=== PATIENT | male | born 1990 | race Caucasian/White ===

== ENCOUNTER 2016-07-04 10:47 | Emergency (ER) | payer SELFPAY ==
[2016-07-04 12:22] LABS: AMPHETAMINES LEVEL URINE NEGATIVE (NEGATIVE); BENZODIAZEPINES URINE NEGATIVE (NEGATIVE); COCAINE METABOLITE URINE NEGATIVE (NEGATIVE); CONTROL LINE INT CTR LINE PRESENT; METHADONE URINE NEGATIVE (NEGATIVE); OPIATES URINE NEGATIVE (NEGATIVE); TRICYCLIC ANTIDEPRESS URINE NEGATIVE (NEGATIVE)
--- NOTE | 2016-07-04 13:24 | EDDOCDS ---
Physician Documentation [facility] Name: Ambrosio Galvez Age: 25 yrs Sex: Male : 1990 Arrival Date: 07/04/2016 Time: 10:47 Bed TR8 Private MD: Disposition: 07/04/16 12:32 Discharged to Home/Self Care. Impression: Contact with and (suspected) exposure to other hazardous, chiefly nonmedicinal, chemicals - UNKNOWN SUBSTANCE, CURRENTLY ASYMPTOMATIC. - Condition is Stable. - Discharge Instructions: Food Poisoning, [id number]. - Medication Reconciliation, Local Pharmacy Hours form. - Follow up: Emergency Department; When: As needed; Reason: Worsening of conditions. Follow [facility]: [facility]; When: Call to arrange an appointment; Reason: Recheck today's complaints, Continuance of care, To establish care. - Problem is new. - Symptoms are unchanged. - Notes: PLEASE FOLLOW UP WITH THE POLICE AND [employer] REGARDING YOUR OCCURANCE TODAY. PLEASE RETURN TO THE ER WITH ANY WORSENING SYMPTOMS. Historical: - Allergies: No known drug Allergies; - Home Meds: 1. none - PMHx: none; - PSHx: none; - Social history: Smoking status: Patient uses tobacco products, heavy tobacco smoker. No barriers to communication noted, The patient speaks fluent Latvian. - : The pt / caregiver states he / she is not on anticoagulants. Home medication list is obtained from the patient, [employer] import data. - Exposure Risk Screening:: Recent exposure to bio hazardous agents. Vital Signs: 07/04 10:49 BP 161 / 88; Pulse 86; Resp 16; Temp 97.0(O); Pulse Ox 100% on R/A; Weight 95.25 kg / lr2 209.99 lbs (R); Height 5 ft. 11 in. (180.34 cm) (R); Pain 0/10; 10:49 Body Mass Index 29.29 (95.25 kg, 180.34 cm) lr2 MDM: 11:38 Financial registration complete. mm15 11:45 [facility] Payment Agreement was scanned into [employer] and attached to record. mm15 11:58 Urine Toxicology Ordered. EDMS 12:13 ED course: PT STATES WAS AT [employer] TODAY HAVING LUNCH AT 1000, BIT INTO HIS [employer] dt4 AND NOTED A BAG FILLED WITH A WHITE POWDER. STATES HE TOOK PICTURES OF IT, DID MELLY WONG AND THE POLICE. POLICE REPORT WAS MADE, MELLY WONG KEPT THE BAG AND "THEY SENT IT TO THEIR CORPORATE OFFICE". PT STATES BAD TASTE IN MOUTH BUT CURRENTLY DENIES ALL OTHER SYMPTOMS. NO ABDOMINAL PAIN, NAUSEA, VOMITING. . Signatures: Dispatcher [employer] Kanwal Lang RN RN [facility] Evelio Palm mm15 Racquel Arana PA-C PA-C dt4 Camila Linda RN RN ms18 The chart was reviewed and I authenticate all verbal orders and agree with the evaluation and treatment provided.Attachments: 11:45 [facility] Payment Agreement mm15 MTDD
--- NOTE | 2016-07-04 13:24 | EDDOCDS ---
Nurse's Notes [facility] [place] Name: Ambrosio Galvez Age: 25 yrs Sex: Male : 1990 Arrival Date: 07/04/2016 Time: 10:47 Bed TR8 Private MD: Diagnosis: Contact with and (suspected) exposure to other hazardous, chiefly nonmedicinal, chemicals-UNKNOWN SUBSTANCE, CURRENTLY ASYMPTOMATIC Presentation: 07/04 10:51 Presenting complaint: Patient states: about half an hour ago he bit into a burrito at [facility] and it had a white substance in a bag - not sure if he broke the bag but he tasted something funny in his burrito. the police have the substance. Adult Sepsis Screening: The patient does not have new or worsening altered mentation. Patient's respiratory rate is less than 22. Systolic blood pressure is greater than 100. Patient has a qSOFA score of 0- Negative Sepsis Screen. Suicide/Homicide risk assessment- the patient denies having any suicidal and/or homicidal ideations and does not present with any other emotional, behavioral or mental health complaints. 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 Transition of care: patient was not received from another setting of care. 10:51 Method Of Arrival: Walkin/Carried/Asstd [facility] 10:51 Acuity: DAYAMI Level 4 [facility] Triage Assessment: 10:54 General: Appears comfortable, well developed, well nourished, well groomed, Behavior is kcs cooperative, pleasant. Pain: Denies pain. HIV screening NA for this visit Offered previously. Neurological: Level of Consciousness is awake, alert. Respiratory: Airway is patent Respiratory effort is even, unlabored, Respiratory pattern is regular, symmetrical. Derm: Skin is intact, is healthy with good turgor, Skin is dry, Skin is normal. Historical: - Allergies: No known drug Allergies; - Home Meds: 1. none - PMHx: none; - PSHx: none; - Social history: Smoking status: Patient uses tobacco products, heavy tobacco smoker. No barriers to communication noted, The patient speaks fluent Malay. - : The pt / caregiver states he / she is not on anticoagulants. Home medication list is obtained from the patient, [employer] import data. - Exposure Risk Screening:: Recent exposure to bio hazardous agents. Assessment: 13:21 General: Called pt twice to come back and be discharged. Pt was not present in the ms18 waiting room either time his name was called. Vital Signs: 10:49 BP 161 / 88; Pulse 86; Resp 16; Temp 97.0(O); Pulse Ox 100% on R/A; Weight 95.25 kg lr2 (R); Height 5 ft. 11 in. (180.34 cm) (R); Pain 0/10; 10:49 Body Mass Index 29.29 (95.25 kg, 180.34 cm) lr2 Vitals: 10:49 Log In Time: July 04, 2016 at 10:47. lr2 ED Course: 10:49 Patient visited by Kassandra Pardo. lr2 10:49 Patient moved to Waiting lr2 10:50 Patient moved to Pre RCE lr2 10:54 Triage Initiated kcs 11:14 Patient moved to Triage 1 srm 11:31 Racquel Arana PA-C is PHCP. dt4 11:31 Sylwia Mcnamara MD is Attending Physician. dt4 11:31 Patient visited by Racquel Arana PA-C. dt4 11:45 [facility] Payment Agreement was scanned into [employer] and attached to record. mm15 12:00 Patient visited by Camila Linda RN. ms18 12:00 Patient moved to TR2 ms18 12:02 Urine Toxicology Sent. srm 12:31 [facility] is Referral Physician. dt4 12:50 Patient moved to PR1 / 25 ms18 12:52 Patient moved to TR8 ms18 Order Results: Lab Order: Urine Toxicology; SPEC'M 07/04/16 12:00 Test: AMPHETAMINES LEVEL URINE; Value: NEGATIVE; Range: NEGATIVE; Status: F Test: BARBITURATES URINE; Value: NEGATIVE; Range: NEGATIVE; Status: F Test: BENZODIAZEPINES URINE; Value: NEGATIVE; Range: NEGATIVE; Status: F Test: CANNABINOIDS URINE; Value: POSITIVE; Range: NEGATIVE; Abnormal: Above high normal; Status: F Test: COCAINE METABOLITE URINE; Value: NEGATIVE; Range: NEGATIVE; Status: F Test: METHADONE URINE; Value: NEGATIVE; Range: NEGATIVE; Status: F Test: OPIATES URINE; Value: NEGATIVE; Range: NEGATIVE; Status: F Test: TRICYCLIC ANTIDEPRESS URINE; Value: NEGATIVE; Range: NEGATIVE; Status: F Test Note: ; FALSE POSITIVE RESULTS CAN BE CAUSED BY THE USE OF PANTOPRAZOLE (PROTONIX). Outcome: 12:32 Discharge ordered by Provider. dt4 13:23 Eloped from waiting room after seeing physician. ms18 13:23 Patient left the ED. ms18 Signatures: Kanwal Nicholas, RN RN [facility] Divya Devine RN RN srm McGrath, Marlynn mm15 Racquel Arana, PASvetlanaC PA-Pacheco dt4 Camila Linda RN RN ms18 Kassandra Pardo2 MTDD
--- NOTE | 2016-07-06 14:25 | EDDOCDS ---
Physician Documentation [facility] Name: Ambrosio Galvez Age: 25 yrs Sex: Male : 1990 Arrival Date: 07/04/2016 Time: 10:47 Bed TR8 Private MD: Disposition: 07/04/16 12:32 Discharged to Home/Self Care. Impression: Contact with and (suspected) exposure to other hazardous, chiefly nonmedicinal, chemicals - UNKNOWN SUBSTANCE, CURRENTLY ASYMPTOMATIC. - Condition is Stable. - Discharge Instructions: Food Poisoning, [id number]. - Medication Reconciliation, Local Pharmacy Hours form. - Follow up: Emergency Department; When: As needed; Reason: Worsening of conditions. Follow up: [facility]; When: Call to arrange an appointment; Reason: Recheck today's complaints, Continuance of care, To establish care. - Problem is new. - Symptoms are unchanged. - Notes: PLEASE FOLLOW UP WITH THE POLICE AND [employer] REGARDING YOUR OCCURANCE TODAY. PLEASE RETURN TO THE ER WITH ANY WORSENING SYMPTOMS. Historical: - Allergies: No known drug Allergies; - Home Meds: 1. none - PMHx: none; - PSHx: none; - Social history: Smoking status: Patient uses tobacco products, heavy tobacco smoker. No barriers to communication noted, The patient speaks fluent Italian. - : The pt / caregiver states he / she is not on anticoagulants. Home medication list is obtained from the patient, [employer] import data. - Exposure Risk Screening:: Recent exposure to bio hazardous agents. Vital Signs: 07/04 10:49 BP 161 / 88; Pulse 86; Resp 16; Temp 97.0(O); Pulse Ox 100% on R/A; Weight 95.25 kg / lr2 209.99 lbs (R); Height 5 ft. 11 in. (180.34 cm) (R); Pain 0/10; 10:49 Body Mass Index 29.29 (95.25 kg, 180.34 cm) lr2 MDM: 11:38 Financial registration complete. mm15 11:45 [facility] Payment Agreement was scanned into [employer] and attached to record. mm15 11:58 Urine Toxicology Ordered. EDMS 12:13 ED course: PT STATES WAS AT [employer] TODAY HAVING LUNCH AT 1000, BIT INTO HIS [employer] dt4 AND NOTED A BAG FILLED WITH A WHITE POWDER. STATES HE TOOK PICTURES OF IT, DID MELLY WONG AND THE POLICE. POLICE REPORT WAS MADE, [employer] KEPT THE BAG AND "THEY SENT IT TO THEIR CORPORATE OFFICE". PT STATES BAD TASTE IN MOUTH BUT CURRENTLY DENIES ALL OTHER SYMPTOMS. NO ABDOMINAL PAIN, NAUSEA, VOMITING. . 07/05 12:23 Refusal of Services was scanned into [employer] and attached to record. gb 12:23 T-Sheet-- Draft Copy was scanned into [employer] and attached to record. gb Signatures: Dispatcher [employer] EDKanwal Kerr, RN RN kcs Rosa Rodriguez, Reg Reg gb Evelio Palm mm15 Racquel Arana PA-C PA-C dt4 Camila Linda RN RN ms18 The chart was reviewed and I authenticate all verbal orders and agree with the evaluation and treatment provided.Attachments: 07/04 11:45 [facility] Payment Agreement mm15 12:23 T-Sheet-- Draft Copy gb Chart Complete MTDD
--- NOTE | 2016-07-06 14:25 | EDDOCDS ---
Physician Documentation [facility] Name: Ambrosio Galvez Age: 25 yrs Sex: Male : 1990 Arrival Date: 07/04/2016 Time: 10:47 Bed TR8 Private MD: Disposition: 07/04/16 12:32 Discharged to Home/Self Care. Impression: Contact with and (suspected) exposure to other hazardous, chiefly nonmedicinal, chemicals - UNKNOWN SUBSTANCE, CURRENTLY ASYMPTOMATIC. - Condition is Stable. - Discharge Instructions: Food Poisoning, [id number]. - Medication Reconciliation, Local Pharmacy Hours form. - Follow up: Emergency Department; When: As needed; Reason: Worsening of conditions. Follow up: [facility]; When: Call to arrange an appointment; Reason: Recheck today's complaints, Continuance of care, To establish care. - Problem is new. - Symptoms are unchanged. - Notes: PLEASE FOLLOW UP WITH THE POLICE AND [employer] REGARDING YOUR OCCURANCE TODAY. PLEASE RETURN TO THE ER WITH ANY WORSENING SYMPTOMS. Historical: - Allergies: No known drug Allergies; - Home Meds: 1. none - PMHx: none; - PSHx: none; - Social history: Smoking status: Patient uses tobacco products, heavy tobacco smoker. No barriers to communication noted, The patient speaks fluent Serbian. - : The pt / caregiver states he / she is not on anticoagulants. Home medication list is obtained from the patient, [employer] import data. - Exposure Risk Screening:: Recent exposure to bio hazardous agents. Vital Signs: 07/04 10:49 BP 161 / 88; Pulse 86; Resp 16; Temp 97.0(O); Pulse Ox 100% on R/A; Weight 95.25 kg / lr2 209.99 lbs (R); Height 5 ft. 11 in. (180.34 cm) (R); Pain 0/10; 10:49 Body Mass Index 29.29 (95.25 kg, 180.34 cm) lr2 MDM: 11:38 Financial registration complete. mm15 11:45 [facility] Payment Agreement was scanned into [employer] and attached to record. mm15 11:58 Urine Toxicology Ordered. EDMS 12:13 ED course: PT STATES WAS AT [employer] TODAY HAVING LUNCH AT 1000, BIT INTO HIS [employer] [facility] dt4 AND NOTED A BAG FILLED WITH A WHITE POWDER. STATES HE TOOK PICTURES OF IT, DID [employer] W[employer] AND THE POLICE. POLICE REPORT WAS MADE, [employer] W[employer] KEPT THE BAG AND "THEY SENT IT TO THEIR CORPORATE OFFICE". PT STATES BAD TASTE IN MOUTH BUT CURRENTLY DENIES ALL OTHER SYMPTOMS. NO ABDOMINAL PAIN, NAUSEA, VOMITING. . 07/05 12:23 Refusal of Services was scanned into [employer] and attached to record. gb 12:23 T-Sheet-- Draft Copy was scanned into [employer] and attached to record. gb Signatures: Dispatcher [employer] EDKanwal Kerr, RN RN kcs Rosa Rodriguez, Reg Reg gb Evelio Palm mm15 Racquel Arana PA-C PA-C dt4 Camila Linda RN RN ms18 The chart was reviewed and I authenticate all verbal orders and agree with the evaluation and treatment provided.Attachments: 07/04 11:45 [facility] Payment Agreement mm15 12:23 T-Sheet-- Draft Copy gb Chart Complete MTDD
--- NOTE | 2016-07-06 14:25 | EDDOCDS ---
Nurse's Notes [facility] Name: Ambrosio Galvez Age: 25 yrs Sex: Male : 1990 Arrival Date: 07/04/2016 Time: 10:47 Bed TR8 Private MD: Diagnosis: Contact with and (suspected) exposure to other hazardous, chiefly nonmedicinal, chemicals-UNKNOWN SUBSTANCE, CURRENTLY ASYMPTOMATIC Presentation: 07/04 10:51 Presenting complaint: Patient states: about half an hour ago he bit into a burrito at [facility] and it had a white substance in a bag - not sure if he broke the bag but he tasted something funny in his burrito. the police have the substance. Adult Sepsis Screening: The patient does not have new or worsening altered mentation. Patient's respiratory rate is less than 22. Systolic blood pressure is greater than 100. Patient has a qSOFA score of 0- Negative Sepsis Screen. Suicide/Homicide risk assessment- the patient denies having any suicidal and/or homicidal ideations and does not present with any other emotional, behavioral or mental health complaints. 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 Transition of care: patient was not received from another setting of care. 10:51 Method Of Arrival: Walkin/Carried/Asstd [facility] 10:51 Acuity: DAYAMI Level 4 [facility] Triage Assessment: 10:54 General: Appears comfortable, well developed, well nourished, well groomed, Behavior is kcs cooperative, pleasant. Pain: Denies pain. HIV screening NA for this visit Offered previously. Neurological: Level of Consciousness is awake, alert. Respiratory: Airway is patent Respiratory effort is even, unlabored, Respiratory pattern is regular, symmetrical. Derm: Skin is intact, is healthy with good turgor, Skin is dry, Skin is normal. Historical: - Allergies: No known drug Allergies; - Home Meds: 1. none - PMHx: none; - PSHx: none; - Social history: Smoking status: Patient uses tobacco products, heavy tobacco smoker. No barriers to communication noted, The patient speaks fluent Estonian. - : The pt / caregiver states he / she is not on anticoagulants. Home medication list is obtained from the patient, [employer] import data. - Exposure Risk Screening:: Recent exposure to bio hazardous agents. Assessment: 13:21 General: Called pt twice to come back and be discharged. Pt was not present in the ms18 waiting room either time his name was called. Vital Signs: 10:49 BP 161 / 88; Pulse 86; Resp 16; Temp 97.0(O); Pulse Ox 100% on R/A; Weight 95.25 kg lr2 (R); Height 5 ft. 11 in. (180.34 cm) (R); Pain 0/10; 10:49 Body Mass Index 29.29 (95.25 kg, 180.34 cm) lr2 Vitals: 10:49 Log In Time: July 04, 2016 at 10:47. lr2 ED Course: 10:49 Patient visited by Kassandra Pardo. lr2 10:49 Patient moved to Waiting lr2 10:50 Patient moved to Pre RCE lr2 10:54 Triage Initiated kcs 11:14 Patient moved to Triage 1 srm 11:31 Racquel Arana PA-C is PHCP. dt4 11:31 Sylwia Mcnamara MD is Attending Physician. dt4 11:31 Patient visited by Racquel Arana PA-C. dt4 11:45 [facility] Payment Agreement was scanned into [employer] and attached to record. mm15 12:00 Patient visited by Camila Linda RN. ms18 12:00 Patient moved to TR2 ms18 12:02 Urine Toxicology Sent. srm 12:31 [facility] is Referral Physician. dt4 12:50 Patient moved to PR1 / 25 ms18 12:52 Patient moved to TR8 ms18 07/05 12:23 Refusal of Services was scanned into [employer] and attached to record. gb 12:23 T-Sheet-- Draft Copy was scanned into [employer] and attached to record. gb Attachments: 07/05 12:23 Refusal of Services gb Order Results: Lab Order: Urine Toxicology; SPEC'M 07/04/16 12:00 Test: AMPHETAMINES LEVEL URINE; Value: NEGATIVE; Range: NEGATIVE; Status: F Test: BARBITURATES URINE; Value: NEGATIVE; Range: NEGATIVE; Status: F Test: BENZODIAZEPINES URINE; Value: NEGATIVE; Range: NEGATIVE; Status: F Test: CANNABINOIDS URINE; Value: POSITIVE; Range: NEGATIVE; Abnormal: Above high normal; Status: F Test: COCAINE METABOLITE URINE; Value: NEGATIVE; Range: NEGATIVE; Status: F Test: METHADONE URINE; Value: NEGATIVE; Range: NEGATIVE; Status: F Test: OPIATES URINE; Value: NEGATIVE; Range: NEGATIVE; Status: F Test: TRICYCLIC ANTIDEPRESS URINE; Value: NEGATIVE; Range: NEGATIVE; Status: F Test Note: ; FALSE POSITIVE RESULTS CAN BE CAUSED BY THE USE OF PANTOPRAZOLE (PROTONIX). Outcome: 07/04 12:32 Discharge ordered by Provider. dt4 13:23 Eloped from waiting room after seeing physician. ms18 13:23 Patient left the ED. ms18 Signatures: Kanwal Nicholas, RN RN [facility] Divya Devine RN RN [facility] Rosa Rodriguez, [facility] Evelio Palm mm15 Racquel Arana PA-C PA-C dt4 Smith, Mallory, RN RN ms18 Kassandra Pardo lr2 Chart Complete DAVID
== END 2016-07-04 13:22 | disposition left against medical advice (07) ==
LOC: M ED 10:47
DX: Z77.098 Contact with and (suspected) exposure to other hazardous, chiefly nonmedicinal, chemicals (principal); F17.200 Nicotine dependence, unspecified, uncomplicated

== ENCOUNTER 2016-07-16 11:57 | Emergency (ER) | payer SELFPAY ==
[~2016-07-16] VITALS: Ht 177.8 cm; Wt 102.1 kg
[2016-07-16 11:58] VITALS: BP 175/95
[2016-07-16] MEDS ORDERED: cefTRIAXone SOD 250 MG VIAL (J0696) IM ONE (12:45)
[2016-07-16] MEDS ORDERED: AZITHROMYCIN 250 MG TAB PO ONE (12:45)
== END 2016-07-16 13:40 | disposition home or self-care (01) ==
LOC: M ED 12:43
DX: R36.9 Urethral discharge, unspecified (principal); F17.200 Nicotine dependence, unspecified, uncomplicated
CPT/HCPCS: 87491; 87591; 96372; 99282; J0696

== ENCOUNTER 2018-03-08 09:29 | Emergency (ER) | payer OTHER, SELFPAY ==
[2018-03-08] MEDS: NS 1,000 ML IV (10:22)
[2018-03-08 10:29] LABS: BASO # 0.1 10^3/uL (0.0-0.2); BASO % 0.4 % (0.0-1.0); EOS # 0.8 10^3/uL (0.0-0.50); EOS % 5.6 % (0.0-3.0); IMMATURE GRANULOCYTE % 0.3 % (0-3.0); LYMPH # 3.5 10^3/uL (1.5-6.5); LYMPH % 26.4 % (24.0-44.0); MEAN CORPUSCULAR HEMOGLOBIN 32.2 pg (27.0-33.0); MEAN CORPUSCULAR HGB CONC 34.8 g/dl (32.0-36.5); MEAN CORPUSCULAR VOLUME 92.6 fl (80.0-96.0); MONO # 0.9 10^3/uL (0.0-0.8); MONO % 6.9 % (0.0-5.0); NEUTROPHILS # 8.1 10^3/uL (1.8-7.7); NEUTROPHILS % 60.4 % (36.0-66.0); PLATELET COUNT, AUTOMATED 186 10^3/uL (150-450); RED BLOOD COUNT 4.97 10^6/uL (4.30-6.10); RED CELL DISTRIBUTION WIDTH 12.6 % (11.5-14.5); WHITE BLOOD COUNT 13.4 10^3/uL (4.0-10.0)
[2018-03-08 10:40] LABS: KETONE, URINE AUTO RFX NEGATIVE (NEGATIVE); LEUKOCYTE ESTERASE UR AUTO RFX NEGATIVE (NEGATIVE); MUCUS, URINE RFX SMALL (NEGATIVE); NITRITE, URINE AUTO RFX NEGATIVE (NEGATIVE); RBC, URINE AUTO RFX 0 /HPF (0-3); SPECIFIC GRAVITY UR AUTO RFX 1.016 (1.002-1.035); SQUAM EPITHELIAL CELL UR AURFX 0 /HPF (0-6); WBC, URINE AUTO RFX 1 /HPF (0-3)
[2018-03-08 10:59] LABS: ALBUMIN 3.7 GM/DL (3.2-5.2); ALBUMIN/GLOBULIN RATIO 0.86 (1.00-1.93); ALKALINE PHOSPHATASE 109 U/L (45-117); ALT/SGPT 55 U/L (12-78); AMYLASE 77 U/L (25-115); ANION GAP 7 MEQ/L (8-16); AST/SGOT 31 U/L (7-37); BILIRUBIN,DIRECT 0.1 MG/DL (0.0-0.2); BILIRUBIN,TOTAL 0.6 MG/DL (0.2-1.0); BLOOD UREA NITROGEN 11 MG/DL (7-18); CALCIUM LEVEL 8.8 MG/DL (8.5-10.1); CARBON DIOXIDE LEVEL 25 MEQ/L (21-32); CHLORIDE LEVEL 106 MEQ/L (98-107); GLOMERULAR FILTRATION RATE > 60.0 (>60); GLUCOSE, FASTING 92 MG/DL (70-100); LIPASE 269 U/L (73-393); POTASSIUM SERUM 3.8 MEQ/L (3.5-5.1); SODIUM LEVEL 138 MEQ/L (136-145)
[2018-03-08] MEDS ORDERED: ISOVUE-370 76% 100ML VIAL (Q9967) As Ordered (11:00)
== END 2018-03-08 11:58 | disposition home or self-care (01) ==
LOC: M ED 09:29
DX: K57.32 Diverticulitis of large intestine without perforation or abscess without bleeding (principal); F17.200 Nicotine dependence, unspecified, uncomplicated
CPT/HCPCS: Q9967

== ENCOUNTER 2018-07-11 07:37 | Emergency (ER) | payer OTHER ==
[~2018-07-11] VITALS: Ht 175.3 cm; Wt 95.5 kg
[2018-07-11 07:37] VITALS: BP 139/77
[~2018-07-11 07:37] MED LIST: APAP325T4 PO; CIPR-249 PO; FLAG500T PO; ZOFR4TAB14 PO
--- NOTE | 2018-07-11 08:38 | REP ---
Acute abdominal series: Three views. History: Abdomen pain. Constipation. Findings: Bowel gas pattern is normal. There is air and stool in a nondistended ascending colon, proximal transverse colon, and rectum. No colonic distension is seen. There are one or two air-filled nondilated loops of right sided small bowel. No free air is seen. Flank stripes and psoas margins are intact. No mass or organomegaly is seen. Chest x-ray is clear. No evidence of infiltrate or free subdiaphragmatic air. Heart size is normal. Impression: Unremarkable bowel gas pattern. No acute disease. Electronically Signed by Selvin Martínez MD 07/11/2018 09:58 A
[2018-07-11] MEDS ORDERED: MAGNESIUM CITRATE 300 ML BTL PO ONE (08:45)
== END 2018-07-11 09:00 | disposition home or self-care (01) ==
LOC: M ED 07:37
DX: K59.00 Constipation, unspecified (principal); F17.200 Nicotine dependence, unspecified, uncomplicated

== ENCOUNTER 2023-08-08 19:10 | Emergency (ER) | payer OTHER, SELFPAY ==
[~2023-08-08] VITALS: Ht 177.8 cm; Wt 109.9 kg
[2023-08-08 19:10] VITALS: BP 139/87; TEMP 97.5; O2SAT 98
[2023-08-08 20:53] LABS: RSV AMPLIFICATION NEGATIVE (NEGATIVE)
== END 2023-08-08 22:24 | disposition left against medical advice (07) ==
LOC: M ED 19:10
DX: Z53.21 Procedure and treatment not carried out due to patient leaving prior to being seen by health care provider (principal)

== ENCOUNTER 2024-09-26 04:33 | Emergency (ER) | payer SELFPAY ==
[~2024-09-26] VITALS: Ht 177.8 cm; Wt 115.9 kg
[2024-09-26] MEDS ORDERED: ISOVUE-370 76% 100ML VIAL As Ordered ONE (05:57)
[2024-09-26 06:00] LABS: BASO # 0.1 10^3/uL (0.0-0.2); BASO % 0.5 % (0.0-1.0); EOS # 0.4 10^3/uL (0.0-0.5); EOS % 3.5 % (0.0-3.0); HEMATOCRIT 45.3 % (42.0-52.0); HEMOGLOBIN 15.7 g/dl (13.5-17.5); LYMPH # 2.6 10^3/uL (1.5-5.0); LYMPH % 23.6 % (24.0-44.0); MEAN CORPUSCULAR HEMOGLOBIN 32.7 pg (27.0-33.0); MEAN CORPUSCULAR HGB CONC 34.7 g/dl (32.0-36.5); MEAN CORPUSCULAR VOLUME 94.4 fl (80.0-96.0); MONO # 0.8 10^3/uL (0.0-0.8); MONO % 6.8 % (2.0-8.0); NEUTROPHILS # 7.2 10^3/uL (1.5-8.5); PLATELET COUNT, AUTOMATED 196 10^3/uL (150-450); WHITE BLOOD COUNT 11.1 10^3/uL (4.0-10.0)
[2024-09-26] MEDS: ONDANSETRON 4MG 2ML VIAL IV ONE (06:01)
[2024-09-26] MEDS: MORPHINE 4 MG/ML 1ML VIAL IV ONE (06:03)
[2024-09-26 06:33] LABS: ALBUMIN 3.9 G/DL (3.2-5.2); ALKALINE PHOSPHATASE 87 U/L (40-129); ALT/SGPT 49 U/L (7.0-40); AST/SGOT 38 U/L (<34); BILIRUBIN,TOTAL 0.3 MG/DL (0.3-1.2); BLOOD UREA NITROGEN 12 MG/DL (9-23); CALCIUM LEVEL 8.9 MG/DL (8.5-10.1); CARBON DIOXIDE LEVEL 21 MMOL/L (20-31); CHLORIDE LEVEL 107 MMOL/L (98-107); CREATININE FOR GFR 0.82 MG/DL (0.70-1.30); GLOMERULAR FILTRATION RATE > 90.0 (>60); GLUCOSE, FASTING 116 MG/DL (60-100); POTASSIUM SERUM 3.9 MMOL/L (3.5-5.1); SODIUM LEVEL 140 MMOL/L (136-145); TOTAL PROTEIN 7.1 G/DL (5.7-8.2)
[2024-09-26] MEDS: PERCOCET 5MG/325MG TAB PO ONE (07:44)
[2024-09-26] MEDS ORDERED: ACET1TAB55 PO (07:53)
[2024-09-26] MEDS ORDERED: AMOX875T2 PO (07:53)
[2024-09-26] MEDS ORDERED: HOME MED LIST COMPLETE! XX SCH (07:55)
[2024-09-26] MEDS ORDERED: HYDR-3713 PO (08:28)
[2024-09-26 08:30] VITALS: BP 118/71; TEMP 98; O2SAT 97
[2024-09-26] MEDS: OXYCODONE/APAP 5MG/325MG(HOME DOSE PACK) PO ONE (08:51)
== END 2024-09-26 08:40 | disposition home or self-care (01) ==
LOC: M ED 04:33
DX: S42.021A Displaced fracture of shaft of right clavicle, initial encounter for closed fracture (principal); S22.31XA Fracture of one rib, right side, initial encounter for closed fracture; K57.30 Diverticulosis of large intestine without perforation or abscess without bleeding; V86.55XA Driver of 3- or 4- wheeled all-terrain vehicle (ATV) injured in nontraffic accident, initial encounter; Y92.9 Unspecified place or not applicable; Y93.9 Activity, unspecified; Y99.9 Unspecified external cause status
CPT/HCPCS: 70450; 71260; 72125; 73000; 73030; 74177; 80047; 80053; 85025; 96374; 96375; 99284; J2405; Q9967

== ENCOUNTER → 2024-09-29 | Outpatient (CLI) | payer SELFPAY ==
[~2024-09-29] MED LIST changes: +ACET1TAB55 PO; +AMOX875T2 PO; +HYDR-3713 PO
== END ==
LOC: M SOG 07:14
PROVIDERS: ATTEND Orthopaedic Surgery
DX: S42.001A Fracture of unspecified part of right clavicle, initial encounter for closed fracture (principal)

== ENCOUNTER → 2024-09-30 | Outpatient (CLI) | payer SELFPAY | LOC: M SOG 06:57 | PROVIDERS: ATTEND Orthopaedic Surgery | DX: S42.001A Fracture of unspecified part of right clavicle, initial encounter for closed fracture (principal); W18.30XA Fall on same level, unspecified, initial encounter; Y92.009 Unspecified place in unspecified non-institutional (private) residence as the place of occurrence of the external cause ==

== ENCOUNTER → 2024-11-13 | Outpatient (CLI) | payer SELFPAY | LOC: M SOG 06:59 | PROVIDERS: ATTEND Orthopaedic Surgery | DX: S42.021D Displaced fracture of shaft of right clavicle, subsequent encounter for fracture with routine healing (principal) ==

== ENCOUNTER → 2025-01-14 | Outpatient (CLI) | payer SELFPAY | LOC: M SOG 06:46 | PROVIDERS: ATTEND Orthopaedic Surgery | DX: S42.021D Displaced fracture of shaft of right clavicle, subsequent encounter for fracture with routine healing (principal) ==